=== PATIENT | female | born 1940 | race Caucasian/White ===

== ENCOUNTER 2017-07-06 19:32 | Emergency (ER) | payer MEDICARE, OTHER ==
[~2017-07-06 19:32] MED LIST: ACETAMINOPHEN325 MG PO; ARICEPT10 MG PO; ASCORBIC ACID500 MG PO; ASPIR 8181 MG PO; CORDARONE200 MG PO; FERROUS SULFAT325 MG PO; HYDROCODON-ACE1 EAC4 PO; KEFLEX500 MG PO; LIPITOR10 MG PO; LOPRESSOR50 MG PO; NITROSTAT0.4 MG SL; SYNTHROID50 MCG PO; VITAMIN D250000 UNIT PO
== END 2017-07-06 23:47 | disposition short-term general hospital (02) ==
LOC: ER 19:32
DX: R07.9 Chest pain, unspecified (principal); N39.0 Urinary tract infection, site not specified; R53.1 Weakness; I25.2 Old myocardial infarction; I48.91 Unspecified atrial fibrillation; Z90.710 Acquired absence of both cervix and uterus; Z79.82 Long term (current) use of aspirin; Z79.899 Other long term (current) drug therapy; Z88.5 Allergy status to narcotic agent
CPT/HCPCS: 36415; 96365; J0696